=== PATIENT | female | born 1990 | race African-American/Black ===

== ENCOUNTER → 2021-03-24 21:00 | Observation (INO) | payer MEDICAID ==
[~2021-03-24] VITALS: Ht 162.6 cm; Wt 91.6 kg
[~2021-03-24 21:00] MED LIST: FERR325T6 PO; IBUP-2030 PO; PREN-182 PO; PREN1TAB78 PO
== END | disposition home or self-care (01) ==
LOC: 8 EST LDRP 03-24 19:11 → UNDOADMOB 19:11 → 8 EST LDRP 19:11
PROVIDERS: ADMIT Obstetrics & Gynecology; ATTEND Obstetrics & Gynecology
DX: O62.9 Abnormality of forces of labor, unspecified (principal); Z3A.38 38 weeks gestation of pregnancy
CPT/HCPCS: 99281; G0378